=== PATIENT | male | born 1955 | race Caucasian/White ===

== ENCOUNTER 2017-05-30 19:58 | Inpatient (IN) | payer OTHER ==
[~2017-05-30] VITALS: Ht 185.4 cm; Wt 102.7 kg
--- NOTE | ~2017-05-30 | HEMODYNAMI ---
PATIENT:BRYCE JEAN MEDICAL RECORD: [id number] : 51 LOCATION:[facility]18 ADMISSION DATE: 05/30/17 Generatedon:05/31/201714:55 Patient name: BRYCE JEAN Patient #: [id number] SSN: [id number] B: 1955 Date of study: 05/31/2017 Page: Of Hemodynamic Procedure Report Patient Data Patient Demographics Procedure consent was obtained First Name: BRYCE Gender: Male Last Name: MIRANDA : 1955 Middle Initial: VITA Age: 62 year(s) Patient #: [id number] Race: Unknown Additional ID: [id number] Contact details Address: [address] State: [place] City: [place] Zip code: [address] Past Medical History Allergies Allergen Reaction Date Comments Reported Sulfa drugs 05/31/2017 Admission Admission Data Admission Date: 05/30/2017 Admission Time: 21:23 Room #: [facility] Procedure Procedure Types Cath Procedure Diagnostic Procedure [facility] w/Coronaries Miscellaneous Procedures Moderate Sedation up to 15 minutes Procedure Description Procedure Date Procedure Date: 05/31/2017 Procedure Start Time: 14:41 Procedure End Time: 14:54 Procedure Staff Name Function Micheal Mann MD Performing Physician Luiz Albright RT Scrub Beverly Dumont RT Monitor Dulce Solorio RN Nurse Procedure Data Cath Procedure Fluoroscopy Diagnostic fluoroscopy Total fluoroscopy Time: 1.5 time: 1.5 min min Diagnostic fluoroscopy Total fluoroscopy dose: 416 dose: 416 mGy mGy Contrast Material Contrast Material Type Amount (ml) Isovue 300 54 Entry Location Entry Primary Successful Side Size Upsize Upsize Entry Closure Succes sful Closure Location (Fr) 1 (Fr) 2 (Fr) Remarks Device Remarks Femoral Right 5 Fr Exoseal artery Estimated blood loss: 5 ml Diagnostic catheters Device Type Used For End Catheter Placement Cordis 5Fr Pigtail LV Angiography Catheter (MP) Cordis 5Fr JL 4.0 Left Coronary Catheter (MP) Angiography Diagnostic Infinity 5Fr Left Coronary JL 5 catheter Angiography Cordis 5Fr 3DRC Catheter Right Coronary (MP) Angiography Procedure Complications No complications Procedure Medications Medication Administration Route Dosage Oxygen NC 2 l/min Heparin Flush Bag added to field 2 bags (1000units/500ml NS) Lidocaine 2% added to field 20 Radial Cocktail added to field 1 syringe (Verapomil 2mg/Nitro 400mcg/Heparin 1500units) Versed I.V. 1 mg Fentanyl I.V. 50 mcg Versed I.V. 1 mg Fentanyl I.V. 50 mcg Versed I.V. 1 mg Fentanyl I.V. 50 mcg Versed I.V. 1 mg Fentanyl I.V. 50 mcg Hemodynamics Rest Heart Rate: 57 (bpm) Snapshots Pre Cath Intra NCS Post Cath Vital Signs Time Heart Resp SPO2 NIBP (mmHg) Rhythm Pain Sedation Rate (ipm) (%) Status Level (bpm) 14:22:50 59 16 99 151/93(129) SB 0 (11) 10(A) , No pain 14:27:10 57 16 99 145/94(124) SB 0 (11) 10(A) , No pain 14:31:30 57 15 96 158/85(124) SB 0 (11) 10(A) , No pain 14:35:44 52 13 96 140/89(120) SB 0 (11) 10(A) , No pain 14:40:02 57 24 92 144/76(126) SB 0 (11) 9(A) , No pain 14:44:18 50 16 97 135/81(118) SB 0 (11) 9(A) , No pain 14:48:34 52 22 96 154/87(123) SB 0 (11) 9(A) , No pain 14:52:38 59 27 96 138/92(125) SB 0 (11) 9(A) , No pain Medications Time Medication Route Dose Verified Delivered Reason Notes Eff ectiveness by by 14:22:15 Oxygen NC 2 l/min Micheal Solorio RN physician 14:22:23 Heparin Flush added 2 bags Micheal Burton used for Bag to Mackenzie Mann MD procedure (1000units/500ml field NS) 14:22:29 Lidocaine 2% added 20ml Micheal Micheal used for to vial Mackenzie Mann MD procedure field 14:22:36 Radial Cocktail added 1 Micheal Burton used for (Verapomil to syringe Mackenzie Mann MD procedure 2mg/Nitro field 400mcg/Heparin 1500units) 14:28:45 Versed I.V. 1 mg Micheal Dulce for Mackenzie Solorio RN sedation 14:28:50 Fentanyl I.V. 50 mcg Micheal Dulce for Mackenzie Solorio RN sedation 14:31:03 Versed I.V. 1 mg Micheal Dulce for Mackenzie Solorio RN sedation 14:31:10 Fentanyl I.V. 50 mcg Micheal Dulce for Mackenzie Solorio RN sedation 14:35:48 Versed I.V. 1 mg Micheal Dulce for Mackenzie Solorio RN sedation 14:35:55 Fentanyl I.V. 50 mcg Micheal Dulce for Mackenzie Soloiro RN sedation 14:38:00 Versed I.V. 1 mg Micheal Dulce for Mackenzie Solorio RN sedation 14:38:17 Fentanyl I.V. 50 mcg Micheal Dulce for Mackenzie Solorio RN sedation Procedure Log Time Note 14:00:59 Beverly Counts RT(R) sent for patient. Start room use. 14:01:00 Time tracking: Regular hours 14:01:03 Plan of Care:Hemodynamics will remain stable., Cardiac rhythm will remain stable., Comfort level will be maintained., Respiratory function will remain adequate., Patient/ family verbilizes understanding of procedure., Procedure tolerated without complication., Recovers from procedure without complications.. 14:16:43 Patient received from Med/Surg to CCL 2 Alert and oriented. Tansferred to table in Supine position. 14:16:44 Warm blankets applied, and javi hugger turned on for patient comfort. 14:16:44 Correct patient and procedure confirmed by team. 14:16:45 Signed procedure consent form obtained from patient. 14:16:46 ECG and BP/O2 sat monitors applied to patient. 14:16:47 Full Disclosure recording started 14:21:40 Vital chart was started 14:22:15 Oxygen 2 l/min NC was administered by Dulce Solorio RN; Per physician; 14:22:23 Heparin Flush Bag (1000units/500ml NS) 2 bags added to field was administered by Micheal Mann MD; used for procedure; 14:22:29 Lidocaine 2% 20ml vial added to field was administered by Micheal Mann MD; used for procedure; 14:22:36 Radial Cocktail (Verapomil 2mg/Nitro 400mcg/Heparin 1500units) 1 syringe added to field was administered by Micheal Mann MD; used for procedure; 14:23:21 Rhythm: sinus bradycardia 14:23:28 H&P Date Dictated: 05/31/2017 Within 30 days and on chart.. 14:23:45 IV Extension Set opened to sterile field. 14:24:28 Pre-procedure instructions explained to patient. 14:24:28 Pre-op teaching completed and patient verbalized understanding. 14:24:29 Family in waiting room. 14:24:32 Patient NPO since Midnight. 14:25:15 Patient allergic to Sulfa drugs 14:25:18 Is patient on blood thinner?No 14:25:21 Patient diabetic? No. 14:25:23 Previous problem with sedation/anesthesia? No ? 14:25:24 Snore? Yes 14:25:25 Sleep apnea? No 14:25:27 Deviated septum? No 14:25:27 Opens mouth fully? Yes 14:25:28 Sticks out tongue? Yes 14:25:30 Airway obstruction? No ? 14:25:31 Dentures? No ? 14:25:33 Pre procedure: right dorsailis pedis pulse 2+ Normal; easily identifiable; not easily obliterated 14:25:35 Modified Augie's test Ulnar < 7 seconds 14:25:37 Patient pain scale 0/10 ?. 14:25:45 IV patent on arrival in left hand with 0.9% NaCl at KVO. 14:25:51 Lab results completed and on chart. 14:25:54 Right Radial & Right Groin area was prepped with chlora-prep and draped in sterile fashion 14:25:55 Alarms reviewed by R. N. 14:25:55 Sharps counted by scrub and verified by R.N. 14:27:46 Final Timeout: patient, procedure, and site verified with staff and physician. All members of the team are in agreement. 14:27:48 Right Radial site verified by team. 14:27:52 Physical assessment completed. ASA score P 2 - A patient with mild systemic disease as per Micheal Mann MD. 14:27:55 Sedation plan: IV Moderate Sedation Versed, Fentanyl 14:28:44 Use device set Radial Dx 14:28:45 Versed 1 mg I.V. was administered by Dulce Solorio RN; for sedation; 14:28:45 Acist Syringe opened to sterile field. 14:28:45 Medline Cath Pack opened to sterile field. 14:28:46 Bag Decanter opened to sterile field. 14:28:47 St Hunter 260cm J .035 wire opened to sterile field. 14:28:47 Acist Hand Control opened to sterile field. 14:28:48 Acist Manifold opened to sterile field. 14:28:48 Tegaderm 4 x 4 opened to sterile field. 14:28:49 MBrace Wrist Support opened to sterile field. 14:28:50 Fentanyl 50 mcg I.V. was administered by Dulce Solorio RN; for sedation; 14:30:38 Baseline sample Acquired. 14:31:03 Versed 1 mg I.V. was administered by Dulce Solorio RN; for sedation; 14:31:10 Fentanyl 50 mcg I.V. was administered by Dulce Solorio RN; for sedation; 14:35:48 Versed 1 mg I.V. was administered by Dulce Solorio RN; for sedation; 14:35:55 Fentanyl 50 mcg I.V. was administered by Dulce Solorio RN; for sedation; 14:38:00 Versed 1 mg I.V. was administered by Dulce Solorio RN; for sedation; 14:38:17 Fentanyl 50 mcg I.V. was administered by Dulce Solorio RN; for sedation; 14:39:07 Zero performed for pressure channel P1 14:40:44 Procedure started. 14:41:34 Local anesthetic to right femoral artery with Lidocaine 2% by Micheal Mann MD.INITIAL ACCESS ONLY 14:41:53 Use device set Multipack Set 14:41:54 Diagnostic Infinity 5Fr Multipack catheter opened to sterile field. 14:41:56 Terumo 5Fr [place] Sheath opened to sterile field. 14:42:30 A 5 Fr sheath was inserted into the Right Femoral artery 14:43:26 A Cordis 5Fr Pigtail Catheter (MP) was advanced over the wire and used for LV Angiography. 14:44:13 LV gram done using BURROWS 14:44:23 EF : 50 % 14:44:29 Injector settings: Ml/sec: 10, Volume: 20, 14:44:42 Catheter removed. 14:44:46 A Cordis 5Fr JL 4.0 Catheter (MP) was advanced over the wire and used for Left Coronary Angiography.removed, unable to cannulate. 14:46:13 A Diagnostic Infinity 5Fr JL 5 catheter was advanced over the wire and used for Left Coronary Angiography. 14:47:07 Catheter removed. 14:47:26 A Cordis 5Fr 3DRC Catheter (MP) was advanced over the wire and used for Right Coronary Angiography. 14:48:08 Catheter removed. 14:48:14 Cordis 5Fr Exoseal opened to sterile field. 14:48:29 Sheath removed intact; hemostasis achieved with Exoseal to the Right Femoral artery. 14:48:43 Procedure ended.(Physican Out) 14:49:12 Fluoroscopy time 01.50 minutes. 14:49:16 Fluoroscopy dose: 416 mGy 14:49:16 Flurop Dose total: 416 14:49:48 Contrast amount:Isovue 300 54ml. 14:49:49 Sharps counted by scrub and verified by R.N. 14:50:39 Insertion/operative site no bleeding no hematoma. 14:50:45 Post-op/insertion site Right Femoral artery dressed using a 4 x 4 and Tegaderm. 14:50:48 Post right femoral artery:stable, clean and dry 14:50:50 Post Procedure Pulses reassessed and unchanged 14:50:53 Post-procedure physical assessment completed. ASA score P 2 - A patient with mild systemic disease as per Micheal Mann MD. 14:50:56 Post procedure rhythm: unchanged. 14:51:06 Estimated blood loss: 5 ml 14:51:07 Post procedure instruction explained to patient.Patient verbalizes understanding. 14:51:08 Patient needs reinforcement of post procedure teaching. 14:51:21 Procedure type changed to Cath procedure, Diagnostic procedure, LHC, LHC w/Coronaries, Miscellaneous Procedures, Moderate Sedation up to 15 minutes 14:51:27 Procedure Complication : No complications 14:51:29 See physician's report for complete and final results. 14:53:24 Procedure and supply charges have been captured, reviewed, submitted and are correct. 14:54:35 Vital chart was stopped 14:54:37 Report given to PCU. 14:54:40 Patient transfered to PCU with Bed. 14:54:47 Procedure ended. 14:54:47 Full Disclosure recording stopped 14:54:53 End room use (Document Last) Device Usage Item Name Manufacture Quantity Catalog Hospital Part Current Minimal Lot# / Number Charge Number Stock Stock Serial# Code IV Hospira 1 25072-46 [id number] 77865 805142 5 Extension Set Acist Acist 1 88761 235667 713952 854232 20 Syringe Medical Systems Inc Medline Cardinal 1 [id number] 441613 18433 934364 5 Cath Pack Health Bag Microtek 1 2001S 932089 28791 784069 [address] Hunter 1 391884 813670 344144 495864 30 260cm J .035 wire Acist Hand Acist 1 98285 857694 375612 353482 5 Control Medical Systems Inc Acist Acist 1 40009 162872 648430 312694 5 Manifold Medical Systems Inc Tegaderm 4 3M 1 1626W 085509 390918 421893 5 x 4 MBrace Advanced 1 140-0250-00 231529 63279 469006 5 Wrist Vascular Support Dynamics Diagnostic Cardinal 1 HC1607 267694 11954 051755 30 Infinity Health 5Fr Multipack catheter Terumo 5Fr Terumo 1 [id number] 418250 178478 362584 40 [place] Sheath Cordis 5Fr Cardinal 1 660618 5 Pigtail Health Catheter (MP) Cordis 5Fr Cardinal 1 463557 5 JL 4.0 Health Catheter (MP) Diagnostic Cardinal 1 [id number] 677637 154261 514326 5 Infinity Health 5Fr JL 5 catheter Cordis 5Fr Cardinal 1 546233 5 3DRC Health Catheter (MP) Cordis 5Fr Cardinal 1 EX500 497218 294839 389729 10 GlamBox Signature Audit [place] Stage Time Signature Unsigned Intra-Procedure 05/31/2017 Beverly 2:55:05 PM Counts RT(R) Signatures Monitor : Beverly Signature : Counts RT Date : Time : [place] [id number] [place] [address]
--- NOTE | ~2017-05-30 | PRO ---
PATIENT:BRYCE JEAN MEDICAL RECORD: [id number] : 51 LOCATION:D.M2 D.2129 ADMISSION DATE: 05/30/17 PROCEDURE PERFORMED BY: PIO GARCIA MD PROCEDURE DATE: 05/31/17 PROCEDURES: 1. Left heart catheterization. 2. Selective coronary angiography. 3. Left ventriculogram. INDICATION: 1. Dyspnea on exertion. 2. Bradycardia. 3. Dysrhythmia. PROCEDURE IN DETAIL: After informed consent was obtained and after detailed explanation of risks, benefits, as well as alternative therapies, the patient elected to proceed with angiogram. The right femoral area was prepped and draped in a normal sterile fashion. The right femoral artery was cannulated via modified Seldinger technique with placement of 5-Kazakh sheath. All catheters exchanged through this sheath. FINDINGS: The left ventriculogram was performed in standard 30 degree BURROWS view, reveals good cardiac wall motion throughout all segments. Overall ejection fraction 50%. SELECTIVE CORONARY ANGIOGRAPHY: 1. Left main, left anterior descending, left circumflex, and right coronary artery are all smooth-walled vessels with no angiographic evidence of coronary artery disease. OVERALL IMPRESSION: 1. No angiographic evidence of coronary artery disease. 2. Normal left heart pressures. 3. Normal left ventricular systolic function. 4. Chest pain is noncardiac in etiology. No further cardiac workup needs to be ascertained. PIO GARCIA MD CC: [id number] DICTATION DATE: 06/01/172300 AMMUNITION ASSEMBLY II LABORER: JMARYCRUZ 06/01/172300 ADM IN [facility] [address] [id number]
--- NOTE | ~2017-05-30 | EC ---
PATIENT:BRYCE JEAN DATE OF SERVICE: 05/31/17 SEX: M MEDICAL RECORD: [id number] DATE OF : [birth year] LOCATION:D.M2 D.212 AGE OF PATIENT: 62 ADMISSION DATE: 05/30/17 REFERRING PHYSICIAN: INTERPRETING PHYSICIAN: PIO GARCIA MD ECHOCARDIOGRAM REPORT ECHO CHARGES 4 ECHO COMPLETE CLINICAL DIAGNOSIS: ASSESS FOR CHF HX OF HTN ECHOCARDIOGRAPHIC MEASUREMENTS (adult normal given) AC root (d.<3.7cm) 4.3 cm LV Septum d (<1.2 cm> 1.5 cm Valve Excursion 2.3 cm LV Septum (systole) 2.0 cm Left Atria (s.<4.0cm> 4.5 cm LVPW d(<1.2cm) 2.0 cm RV (d.<2.3cm) 5.8 cm LVPW (sytole) 2.1 cm LV diastole(<5.6CM) 5.2 cm MV E-F(>70mm/sec) cm LV systole 3.0 cm LVOT Diameter 2.2 cm MV exc.(>10mm) 2.3 cm Est.ejection fraction (50-75%) % Pericardial Effusion N DOPPLER: LVIT cm/sec A 40.0 cm/sec E 99.0 cm/sec LA cm/sec RVSP 44 mmHg LVOT 94 cm/sec AOP1/2T m/s Asc. Ao 134 cm/sec RVOT 56 cm/sec RA cm/sec PA 117 cm/sec AV Gradient Peak 7.23 mmHg AV Mean 3.91 mmHg AV Area 2.9 cm MV Gradient Peak 6.19 mmHg MV Mean 1.76 mmHg MV Area cm COMMENTS: Business Case Analyst: 2 DEVI WHEAT Caddie Supervisor: 3 Dr. Bojorquez TAPE# PACS TWO-DIMENSIONAL ECHOCARDIOGRAM WITH DOPPLER 1. Left ventricular chamber size is within normal limits. Left ventricular systolic function is normal. Overall ejection fraction is estimated at 60 percent. 2. Left atrium is enlarged at 4.5 centimeters. Right atrium and right ventricular chamber sizes are as well moderately dilated. 3. Valvular structures have normal structure and motion. 4. Doppler interrogation reveals moderate mitral regurgitation and moderate tricuspid regurgitation; no other valvular insufficiency or stenosis. Pulmonary artery systolic pressure is mildly elevated estimated at 44 millimeters of mercury. ECHOCARDIOGRAM REPORT [id number] BRYCE JEAN 5. No evidence of pericardial effusion or left ventricular thrombus. PIO GARCIA MD CC: [id number] DICTATION DATE: 05/31/17 1600 SUSTAINMENT LOGISTICS ANALYST: MELONY 06/01/17 1543 ADM IN [facility] [address] [place] [address]
[~2017-05-30 19:58] MED LIST: ARICEPT10 MG PO; AVODART0.5 MG PO; BACTROBAN CREAM15 GM TOPICAL; CALCIUM CITRATE1 TAB PO; DILAUDID8 MG PO; EFFEXOR XR150 MG PO; FELODIPINE ER10 MG PO; FLOMAX0.4 MG PO; FLUTICASONE PRO16 GM NASAL; KEPPRA1000 MG PO; LYSINE1000 MG PO; MULTIPLE VITAMI1 TA1 PO; NORCO 5/325 TAB1 TA1 PO; OXYCODONE HCL10 MG PO; PERCOCET 10/3251 TA1 PO; POTASSIUM CITRA5 MEQ PO; PRILOSEC20 MG PO; PRINIVIL10 MG PO; TIROSINT50 MCG PO; TOPROL XL25 MG PO; TYLENOL W/CODEI1 TAB PO; VITAMIN D50000 UNIT PO; ZOCOR40 MG PO; ZOFRAN8 MG PO
[2017-05-30 21:13] LABS: ALKALINE PHOSPHATASE 75 U/L (46-116); ALT (SGPT) 16 U/L (10-68); BILIRUBIN - TOTAL 0.33 mg/dL (0.2-1.3); CALC OSMOLALITY 290 mosm/kg (275-300); CALCIUM 8.1 mg/dL (8.5-10.1); CARBON DIOXIDE 22.8 mmol/L (21.0-32.0); CHLORIDE - SERUM 113 mmol/L (98-107); CREATININE - SERUM 1.3 mg/dL (0.6-1.3); PROTEIN - SERUM 6.6 g/dL (6.4-8.2); SODIUM 145 mmol/L (136-145); UREA NITROGEN 15 mg/dL (7-18); eGFR NON AFRICAN AMERICAN 59 mL/min (90-120)
[2017-05-30 21:14] LABS: GLUCOSE 110 mg/dL (74-106)
[2017-05-30 21:19] LABS: BASOPHILS 0.7 % (0-2); EOSINOPHILS 4.5 % (0-7); HEMATOCRIT 25.7 % (42.0-54.0); IMMATURE GRANULOCYTES 0.3 % (0-5); LYMPHOCYTES 22.4 % (15-50); MCH 20.7 pg (26.0-34.0); MCHC 28.8 g/dL (31.0-37.0); MEAN PLATELET VOLUME 9.8 fL (7.4-10.4); MONOCYTES 13.2 % (2-11); NEUTROPHILS 58.9 % (40-80); PLATELET COUNT 181 10x3/uL (130-400); RBC 3.57 10x6/uL (4.20-6.10); RDW 16.7 % (11.5-14.5)
[2017-05-30 21:21] LABS: CREATINE KINASE 165 UL (21-232); HEMOGLOBIN 7.4 g/dL (13.5-17.5); MAGNESIUM - SERUM 2.1 mg/dL (1.8-2.4); PRO BNP 1260 pg/mL (0-125)
[2017-05-30 21:23] LABS: TROPONIN-I < 0.017 ng/mL (0.000-0.060)
[2017-05-30 21:45] LABS: APPEARANCE CLEAR (CLEAR); COLOR YELLOW (YELLOW)
[2017-05-30 21:49] LABS: BILIRUBIN NEGATIVE (NEGATIVE); GLUCOSE NEGATIVE (NEGATIVE); KETONE NEGATIVE (NEGATIVE); LEUKOCYTE ESTERASE NEGATIVE (NEGATIVE); NITRITE NEGATIVE (NEGATIVE); PROTEIN NEGATIVE (NEGATIVE); UROBILINOGEN NORMAL (NORMAL)
--- NOTE | 2017-05-30 22:39 | NUR ---
REC'D FROM ER DEPT PER WC TO ROOM 2218 A 62 Y/O W/M PER SERVICES DR. SALCEDO WITH DX. PNEUMONIA AND ANEMIA. ALLERGY=SULFA. SALINE LOCK PATENT RT ARM WITH LEVAQUAN INFUSING TO GRAVITY. ASESSMENT PER ADMIT PACKET. ALERT/ORIENTED X3 UP AD MOHIT TO BR VOIDS WELL. PLACED ON TELM. SHOWING CAF WITH HR 59.
--- NOTE | 2017-05-30 23:10 | NUR ---
CONSENTS SIGNED AND WITNESSED FOR BLOOD TRANSFUSION. PLACED CONSENTS ON THE CHART.
[2017-05-30 23:43] VITALS: BP 148/86; BMI 31.0
--- NOTE | 2017-05-31 00:40 | NUR ---
FIRST UNIT OF PRBC'S STARTED PER HOSPITAL PROTOCAL. ZIGZAG MACHINE OPERATOR PHONED AND STATED PT DIPPED DOWN TO 37-40 BEATS THEN BACK UP TO 55-59. CAF.VS RETAKEN SHOWS HR 62. B/P=130/76. WILL CONTINUE TO MONITOR.
--- NOTE | 2017-05-31 03:38 | NUR ---
FIRST UNIT PRBC'S COMPLETED WITHOUT REACTION. LASIX 20 MG IVP X1 DOSE GIVEN ORDERED BETWEEN UNITS.
--- NOTE | 2017-05-31 04:20 | NUR ---
SECOND UNIT PRBC'S HUNG PER HOSPITAL PROTOCAL. MONITORING VS WITH TRANFUSION.
--- NOTE | 2017-05-31 05:12 | NUR ---
EYES CLOSED RESPIRATIONS WITH EASE AND UNLABORED.
--- NOTE | 2017-05-31 07:25 | NUR ---
ASSESSMENT PER FLOW SHEET.PT WITHOUT DISTRESS.DENIES PAIN AT PRESENT.OCCASIONAL PRODUCTIVE COUGH WITH CLEAR SPUTUM. BLOOD IS INFUSING AND ALMOST COMPLETE.SCABBED AREAS NOTED TO BLE.CALL LIGHT IN REACH.
--- NOTE | 2017-05-31 07:40 | NUR ---
CALL FROM THERMOSTATIC CONTROLS SUPERVISOR HEART RATE DROPPED TO 39 ,BUT THEN INCREASED BACK TO 55. PT WITHOUT DISTRESS. STATES NO HX OF LOW HR.MONITOR
[2017-05-31 08:09] VITALS: BP 137/82
[2017-05-31 10:16] LABS: ALBUMIN 3.1 g/dL (3.4-5.0); ANION GAP 15.1 mmol/L (8-16); BILIRUBIN - TOTAL 0.49 mg/dL (0.2-1.3); CALCIUM 8.1 mg/dL (8.5-10.1); CARBON DIOXIDE 23.5 mmol/L (21.0-32.0); CREATININE - SERUM 1.5 mg/dL (0.6-1.3); POTASSIUM - SERUM 3.6 mmol/L (3.5-5.1)
[2017-05-31 10:30] LABS: % SATURATION 6 % (15-55); IRON 28 ug/dl (35-150); TOTAL IRON BIND CAPACITY 411 ug/dl (260-445); UNSAT IRON BIND CAPACITY 383 ug/dl (150-375)
[2017-05-31 10:40] LABS: BASOPHILS 0.4 % (0-2); EOSINOPHILS 3.7 % (0-7); HEMATOCRIT 30.9 % (42.0-54.0); HEMOGLOBIN 9.2 g/dL (13.5-17.5); IMMATURE GRANULOCYTES 0.2 % (0-5); LYMPHOCYTES 17.8 % (15-50); MCH 22.1 pg (26.0-34.0); MCHC 29.8 g/dL (31.0-37.0); MCV 74.1 fL (80.0-100.0); MEAN PLATELET VOLUME 10.5 fL (7.4-10.4); MONOCYTES 13.1 % (2-11); NEUTROPHILS 64.8 % (40-80); PLATELET COUNT 199 10x3/uL (130-400); RBC 4.17 10x6/uL (4.20-6.10); RDW 17.3 % (11.5-14.5); WBC 5.6 10x3/uL (4.8-10.8)
[2017-05-31 11:59] VITALS: BP 143/80
[2017-05-31 12:37] LABS: CKMB 1.5 U/L (0.0-3.6); CREATINE KINASE 169 UL (21-232); TROPONIN-I 0.027 ng/mL (0.000-0.060)
[2017-05-31 13:03] VITALS: Ht 185.4 cm; Wt 102.7 kg
--- NOTE | 2017-05-31 14:17 | NUR ---
TO FIBERGLASS CONTAINER WINDING OPERATOR VIA BED
--- NOTE | 2017-05-31 15:30 | NUR ---
RECEIVED PT TO ROOM 2128, POST CATH. VITAL SIGNS STABLE, NO BLEEDING OR HEMATOMA NOTED TO RT GROIN. INSTRUCTED PT TO LAY FLAT FOR 2HRS. PT DENIES ANY NEEDS AT THIS TIME. NO FAMILY PRESENT, CALL LIGHT IN REACH, NAD NOTED, WILL CONTINUE TO MONITOR.
--- NOTE | 2017-05-31 15:40 | NUR ---
REPORT TO KAMINI ON U.
[2017-05-31 16:30] VITALS: BP 127/78
--- NOTE | 2017-05-31 16:30 | NUR ---
LATE ENTRY- REFUSED SCD'S
[2017-05-31 20:00] VITALS: BP 119/71
--- NOTE | 2017-05-31 21:35 | NUR ---
AWAKE ORIENTED X 4. WATCHING TV. DENIES PAIN. IV IN L FA INTACT, ADMIN SCHED LEVAQUIN. RT GROIN DRSG C/D/I. TELEMETRY SHOWS 60 SR, FIRST DEGREE BLOCK. AMBULATED TO BATHROOM TO VOID. ORIENTED TO CALL LIGHT FOR ANY NEEDS.
[2017-06-01 01:08] LABS: CKMB 0.8 U/L (0.0-3.6); CREATINE KINASE 139 UL (21-232); TROPONIN-I 0.032 ng/mL (0.000-0.060)
[2017-06-01 03:31] LABS: BASOPHILS 0.3 % (0-2); EOSINOPHILS 4.4 % (0-7); HEMATOCRIT 29.6 % (42.0-54.0); IMMATURE GRANULOCYTES 0.2 % (0-5); LYMPHOCYTES 23.5 % (15-50); MCH 22.6 pg (26.0-34.0); MCHC 30.4 g/dL (31.0-37.0); MCV 74.4 fL (80.0-100.0); MEAN PLATELET VOLUME 9.9 fL (7.4-10.4); MONOCYTES 17.2 % (2-11); NEUTROPHILS 54.4 % (40-80); PLATELET COUNT 170 10x3/uL (130-400); RBC 3.98 10x6/uL (4.20-6.10); RDW 17.3 % (11.5-14.5); WBC 5.9 10x3/uL (4.8-10.8)
[2017-06-01 03:51] LABS: ALBUMIN 2.9 g/dL (3.4-5.0); ANION GAP 12.5 mmol/L (8-16); BILIRUBIN - TOTAL 0.4 mg/dL (0.2-1.3); CALCIUM 8.2 mg/dL (8.5-10.1); CARBON DIOXIDE 27.1 mmol/L (21.0-32.0); CREATININE - SERUM 1.4 mg/dL (0.6-1.3); POTASSIUM - SERUM 3.6 mmol/L (3.5-5.1); PROTEIN - SERUM 6.4 g/dL (6.4-8.2)
[2017-06-01 04:00] VITALS: BP 125/77
--- NOTE | 2017-06-01 05:45 | NUR ---
ADMIN SCHED MED. STILL DROWSY. DENIES ANY NEEDS.
--- NOTE | 2017-06-01 07:44 | NUR ---
AM ROUNDING- RECEIVED REPORT FROM ROLL FORMING MACHINE OPERATOR NURSE GWENDOLYN. PT IS CURRENLTY LAYING IN BED ON BACK WITH EYES OPEN RESTING. ON 02 AT 2L VIA NC. ON MONITOR SHOWING CONTROLLED A-FIB, HR 54. IV SEEN TO LEFT FOREARM WITH NS RUNNING AT KVO (20CC). NO NEED AT CURRENT TIME. WILL CONTINUE TO MONITOR AND CONTINUE WITH PLAN OF CARE.
[2017-06-01 10:02] VITALS: BP 129/73
[2017-06-01 14:42] VITALS: BP 142/85
--- NOTE | 2017-06-01 15:18 | NUR ---
CALLED INTO PTS ROOM. PT STATES (WHILE POINTING TO IV SITE) THAT "IT POPPED OFF WHILE GOING TO THE BATHROOM". PTS IV CATHETER IS ON FLOOR HOOKED TO IV TUBING WITH CATH TIP INTACT. NO BLEEDING SEEN FROM IV SITE. WILL ATTEMPT TO RESITE PT. WILL CONTINUE TO MONITOR.
--- NOTE | 2017-06-01 16:08 | NUR ---
22 G X 1 STICK TO LEFT FA PER THIS NURSE. TOLERATED WELL.
--- NOTE | 2017-06-01 17:14 | NUR ---
PT IS CURRENTLY SITTING UP IN BED WATCHING TV. PT DENIES ANY NEED AT CURRENT TIME. CALL LIGHT IS IN REACH. WILL CONTINUE TO MONITOR.
[2017-06-01 17:48] VITALS: BP 138/84
--- NOTE | 2017-06-01 18:31 | NUR ---
PT IS SITTING UP IN BED WITH EYES OPEN RESTING WATCHING TV. PT DENIES ANY NEED AT CURRENT TIME. CALL LIGHT IS IN REACH. WILL CONTINUE TO MONITOR.
[2017-06-01 19:00] VITALS: BP 122/74
--- NOTE | 2017-06-01 20:00 | NUR ---
PATIENT SHIFT ASSESSMENT COMPLETE. PATIENT DENIES ANY NEEDS AT THIS TIME. CALL LIGHT WITHIN REACH, AND BED IN LOW POSISTION.
--- NOTE | 2017-06-01 22:01 | NUR ---
PATIENT IS RESTLESS IN BED, LAYING AT THE FOOT OF THE BED TO GET COMFORTABLE DUE TO HIS RIB PAIN EXCRUCIATING WHEN HE COUGHS. EXPLAINED TO PATIENT THAT HE NEEDED TO BE ABLE TO COUGH, AND DEEP BREATH TO HELP CLEAR HIS LUNGS, AND PREVENT BREATHING FROM DECREASING. PATIENT VERBALIZED UNDERSTANDING AND AGREED THAT HE NEEDED SOMETHING FOR PAIN. MILLICENT STAPLES FOR PAIN MED, NEW ORDER RECEIVED AND NOTED.
--- NOTE | 2017-06-02 00:13 | NUR ---
PATIENT STATES PAIN MED AND WARM COMPRESS TO RIB AREA HELPED. IV INFUSING WITHOUT REDNESS OR EDEMA NOTED. CALL LIGHT WITHIN REACH, AND BED IN LOW POSITION.
--- NOTE | 2017-06-02 02:05 | NUR ---
PATIENT AWAKE STATES HE IS STILL HAVING PAIN IN LEFT RIB AREA. PATIENT REQUEST ANOTHER PAIN MEDICATION, PATIENT IS INFORMED THAT HE CAN ONLY HAVE IT EVER 6HRS. PATIENT VERBALIZES UNDERSTANDING. OFFERED WARM COMPRESS TO PLACE ON RIB AREA, AND PATIENT AGREED. CALL LIGHT WITHIN REACH, AND BED IN LOW POSITION.
--- NOTE | 2017-06-02 04:12 | NUR ---
NORCO GIVEN FOR PAIN IN LEFT RIB AREA. PATIENT STATES IT HURTS WORSE WHEN HE COUGHS BUT IS APPROXIMATELY 6 ON PAIN SCALE CONT. DIET LEMON TELIDA SODA GIVEN. PATIENT DENIES ANY OTHER NEEDS AT THIS TIME. CALL LIGHT WITHIN REACH, AND BED IN LOW POSITION.
[2017-06-02 06:11] LABS: BASOPHILS 0.3 % (0-2); EOSINOPHILS 3.7 % (0-7); HEMATOCRIT 30.8 % (42.0-54.0); HEMOGLOBIN 9.6 g/dL (13.5-17.5); IMMATURE GRANULOCYTES 0.1 % (0-5); LYMPHOCYTES 19.3 % (15-50); MCHC 31.2 g/dL (31.0-37.0); MCV 73.7 fL (80.0-100.0); MEAN PLATELET VOLUME 10.2 fL (7.4-10.4); MONOCYTES 15.1 % (2-11); NEUTROPHILS 61.5 % (40-80); PLATELET COUNT 193 10x3/uL (130-400); RBC 4.18 10x6/uL (4.20-6.10); RDW 17.9 % (11.5-14.5); WBC 6.9 10x3/uL (4.8-10.8)
[2017-06-02 06:24] VITALS: BP 137/89
--- NOTE | 2017-06-02 06:27 | NUR ---
PATIENT SLEEPING AROUSES EASILY WITH VERBAL STIMULI. PATIENT DENIES ANY NEEDS AT THIS TIME. CALL LIGHT WITHIN REACH, AND BED IN LOW POSITION.
[2017-06-02 06:32] LABS: ALBUMIN 2.8 g/dL (3.4-5.0); ANION GAP 15.3 mmol/L (8-16); BILIRUBIN - TOTAL 0.44 mg/dL (0.2-1.3); CALCIUM 8.1 mg/dL (8.5-10.1); CARBON DIOXIDE 24.3 mmol/L (21.0-32.0); CREATININE - SERUM 1.3 mg/dL (0.6-1.3); POTASSIUM - SERUM 3.6 mmol/L (3.5-5.1); PROTEIN - SERUM 6.5 g/dL (6.4-8.2)
--- NOTE | 2017-06-02 07:44 | NUR ---
DEVANG HOGAN- RECEIVED REPORT FROM DIRECTOR VIDEO NURSE JHONATAN. PT IS CURRENTLY SITTING UP ON SIDE OF BED. PT IS C/O 5/10 PAIN FROM "RIB CAGE AREA". ON O2 AT 2L VIA NC. ON MONITOR SHOWING CONTROLLED A-FIB, HR 56. IV SEEN TO LEFT FOREARM THAT IS RUNNING AT KVO (20CC). WILL SEE WHAT PT HAS FOR PAIN AND TX ORDERED. WILL CONTINUE TO MONITOR AND CONTINUE WITH PLAN OF CARE.
[2017-06-02 08:00] VITALS: BP 139/88
[2017-06-02 16:00] VITALS: BP 126/91
--- NOTE | 2017-06-02 18:40 | NUR ---
PT IS CURRENTLY LAYING IN BED ON BACK WITH EYES OPEN RESTING. GAVE PT TWO CANS OF DIET LEMON-NANWALEK SODA REQUESTED. PT DENIES ANY NEED AT CURRENT TIME. WILL CONTINUE TO MONITOR.
[2017-06-02 19:00] VITALS: BP 143/93
--- NOTE | 2017-06-02 19:50 | NUR ---
SIT UP IN BED AND WATCH TV.
[2017-06-03] VITALS: BP 126/87
--- NOTE | 2017-06-03 01:19 | NUR ---
C/O OF PAIN IN CHEST AREA, AT A LEVEL OF 7, PAIN MED GIVEN.
[2017-06-03 04:00] VITALS: BP 123/92
[2017-06-03 06:16] LABS: BASOPHILS 0.1 % (0-2); EOSINOPHILS 4.1 % (0-7); HEMATOCRIT 31.5 % (42.0-54.0); HEMOGLOBIN 9.5 g/dL (13.5-17.5); IMMATURE GRANULOCYTES 0.3 % (0-5); LYMPHOCYTES 17.2 % (15-50); MCH 22.1 pg (26.0-34.0); MCHC 30.2 g/dL (31.0-37.0); MCV 73.4 fL (80.0-100.0); MEAN PLATELET VOLUME 10.2 fL (7.4-10.4); NEUTROPHILS 61.3 % (40-80); PLATELET COUNT 191 10x3/uL (130-400); RBC 4.29 10x6/uL (4.20-6.10); RDW 18.3 % (11.5-14.5); WBC 7.1 10x3/uL (4.8-10.8)
[2017-06-03 06:46] LABS: ALBUMIN 2.9 g/dL (3.4-5.0); ANION GAP 13.9 mmol/L (8-16); BILIRUBIN - TOTAL 0.43 mg/dL (0.2-1.3); CALCIUM 8.1 mg/dL (8.5-10.1); CARBON DIOXIDE 24.9 mmol/L (21.0-32.0); CREATININE - SERUM 1.4 mg/dL (0.6-1.3); POTASSIUM - SERUM 3.8 mmol/L (3.5-5.1); PROTEIN - SERUM 6.4 g/dL (6.4-8.2)
--- NOTE | 2017-06-03 07:38 | NUR ---
AM ROUNDS - PT IN BED AWAKE C/O LEFT SIDE PAIN, STATES IT IS FROM COUGHING. IV TO LEFT FA, NS AT 20CC/HR. NON SKID SOCKS ON. BED AT LOEST POSITION. SIDE RAILS UP X2. MONITOR SHOWING SR, HR 58. PT IS A&O. NO FUTHER NEEDS AT THIS TIME. WILL CONTINUE TO MONITOR
[2017-06-03 08:00] VITALS: BP 121/82
--- NOTE | 2017-06-03 10:35 | NUR ---
PT PIV INFILTRATED IN LEFT ARM DC WITH CATH TIP INTACT. RESITED PT TO R FA 22G X2 STICKS. TOLERATED WELL. SIGNED AND DATED DSNG ADHERED TO SKIN SWAB CAP IN USE. NOTIFIED JOSH ROPER
[2017-06-03 12:00] VITALS: BP 138/87
[2017-06-03] MEDS ORDERED: CORDARONE200 MG PO (13:17)
[2017-06-03] MEDS ORDERED: LEVAQUIN500 MG PO (13:20)
--- NOTE | 2017-06-03 14:14 | NUR ---
Patient Name: BRYCE JEAN Status: ER Accout number: [id number] Admission Date: 05-30-2017 : 1955 Admission Diagnosis:SHORTNESS OF BREATH Attending: KHAI Current LOS: 4 Anticipated DC Date: 06-03-2017 Planned Disposition: Home Primary Insurance: [employer] PPO Discharge Planning Comments: CM MET WITH PATIENT TO DISCUSS DISCHARGE PLANNING/NEEDS. PATIENT STATED THAT HE LIVES WITH A FRIEND NAMED NATE AND SHE WILL BE HIS TRANSPORTATION HOME. STATED THAT HE HAS A WALKER SOMEWHERE,"OR AT LEAST I USE TO", BUT DOESN'T FEEL HE NEEDS IT OR ANY OTHER EQUIPMET. DENIES ANY NEEDS. HAVE MADE MYSELF AVAILABLE IF HE WERE TO THINK OF ANY NEEDS BEFORE HE LEAVES TODAY. Calender Worker Helper: Zainab Guzmán Is the patient Alert and Oriented? Yes * How many steps to enter\\exit or inside your home? 0 * PCP DR [place] * [facility] * Preadmission Environment Home with Family * ADLs Independent * Other Equipment PATIENT STATED HE USE TO HAVE A WALKER, BUT IS UNSURE IF HE STILL HAS IT OR NOT. * List name and contact numbers for known caregivers / representatives who currently or will assist patient after discharge: JOSE KUMAR, FRIEND, * Additional services required to return to the preadmission environment? No * Can the patient safely return to the preadmission environment? Yes * Has this patient been hospitalized within the prior 30 days at any hospital? No
--- NOTE | 2017-06-03 15:30 | NUR ---
WRITTEN AND VERBAL D/C INSTRUCTIONS GIVEN TO PT. IV TO RIGHT FA D/C, CATH TIP INTACT. PT TOLERATED WELL. HEART MONITOR REMOVED AND RETURNED TO ROOFER. PT IS GETTING DRESSED AND THEN I WILL D/C
== END 2017-06-03 15:00 | disposition home or self-care (01) | DRG 286 ==
LOC: D.ER 19:58 → D.MS 21:23 → D.M2 21:23
PROVIDERS: Emergency Medicine; Internal Medicine Interventional Cardiology; ADMIT Family Medicine
PROC: 4A023N7 Measurement of Cardiac Sampling and Pressure, Left Heart, Percutaneous Approach (ICD-10-PCS; principal; 2017-05-31 14:00)
PROC: B2151ZZ Fluoroscopy of Left Heart using Low Osmolar Contrast (ICD-10-PCS; principal; 2017-05-31 14:00)
DX: R07.9 Chest pain, unspecified (principal); J18.9 Pneumonia, unspecified organism; I44.2 Atrioventricular block, complete; R00.1 Bradycardia, unspecified; E53.8 Deficiency of other specified B group vitamins; D50.9 Iron deficiency anemia, unspecified; E83.51 Hypocalcemia; G89.29 Other chronic pain; I48.2 Chronic atrial fibrillation; E03.9 Hypothyroidism, unspecified; M54.5 Low back pain; I10 Essential (primary) hypertension; F32.9 Major depressive disorder, single episode, unspecified; Z86.73 Personal history of transient ischemic attack (TIA), and cerebral infarction without residual deficits

== ENCOUNTER 2017-06-06 22:25 | Emergency (ER) | payer OTHER ==
[2017-05-31 13:03] VITALS: BMI 31.0
[~2017-06-06 22:25] MED LIST changes: +CORDARONE200 MG PO; +LEVAQUIN500 MG PO
[2017-06-06 23:38] LABS: HEMATOCRIT 30.2 % (42.0-54.0); HEMOGLOBIN 9.3 g/dL (13.5-17.5); LYMPHOCYTES 20.1 % (15-50); MCH 22.7 pg (26.0-34.0); MCHC 30.8 g/dL (31.0-37.0); MCV 73.8 fL (80.0-100.0); MEAN PLATELET VOLUME 9.1 fL (7.4-10.4); NEUTROPHILS 66.9 % (40-80); PLATELET COUNT 213 10x3/uL (130-400); RBC 4.09 10x6/uL (4.20-6.10); RDW 19.2 % (11.5-14.5); WBC 8.6 10x3/uL (4.8-10.8)
[2017-06-06 23:54] LABS: ALBUMIN 3.1 g/dL (3.4-5.0); ANION GAP 14.1 mmol/L (8-16); BILIRUBIN - TOTAL 0.3 mg/dL (0.2-1.3); CALCIUM 8.2 mg/dL (8.5-10.1); CARBON DIOXIDE 23.1 mmol/L (21.0-32.0); CREATININE - SERUM 1.7 mg/dL (0.6-1.3); POTASSIUM - SERUM 4.2 mmol/L (3.5-5.1); PROTEIN - SERUM 6.8 g/dL (6.4-8.2)
[2017-06-07 01:40] LABS: APTT 29.9 SECONDS (22.8-39.4); INR 0.99 (0.85-1.17); PROTIME 12.9 SECONDS (11.6-15.0)
== END 2017-06-07 04:20 | disposition home or self-care (01) ==
LOC: D.ER 22:25
PROVIDERS: Emergency Medicine
DX: S36.62XA Contusion of rectum, initial encounter (principal); X58.XXXA Exposure to other specified factors, initial encounter; Y93.89 Activity, other specified; Y92.89 Other specified places as the place of occurrence of the external cause; I50.9 Heart failure, unspecified; I10 Essential (primary) hypertension

== ENCOUNTER 2017-06-07 13:16 | Emergency (ER) | payer OTHER ==
[2017-05-31 13:03] VITALS: BMI 31.0
[2017-06-07 14:41] LABS: BASOPHILS 0.8 % (0-2); EOSINOPHILS 4.6 % (0-7); HEMATOCRIT 32.9 % (42.0-54.0); HEMOGLOBIN 9.7 g/dL (13.5-17.5); IMMATURE GRANULOCYTES 0.2 % (0-5); LYMPHOCYTES 20.9 % (15-50); MCH 22.2 pg (26.0-34.0); MCHC 29.5 g/dL (31.0-37.0); MCV 75.5 fL (80.0-100.0); MEAN PLATELET VOLUME 9.2 fL (7.4-10.4); MONOCYTES 12.7 % (2-11); NEUTROPHILS 60.8 % (40-80); PLATELET COUNT 218 10x3/uL (130-400); RBC 4.36 10x6/uL (4.20-6.10); RDW 19.6 % (11.5-14.5); WBC 6.6 10x3/uL (4.8-10.8)
== END 2017-06-07 15:10 | disposition home or self-care (01) ==
LOC: D.ER 13:16
PROVIDERS: Nurse Practitioner Acute Care
DX: S39.011A Strain of muscle, fascia and tendon of abdomen, initial encounter (principal); X58.XXXA Exposure to other specified factors, initial encounter; Y93.89 Activity, other specified; Y92.89 Other specified places as the place of occurrence of the external cause; S36.62XA Contusion of rectum, initial encounter; I50.9 Heart failure, unspecified; I10 Essential (primary) hypertension; I95.9 Hypotension, unspecified; R05 Cough; R10.9 Unspecified abdominal pain

== ENCOUNTER → 2017-06-23 07:46 | Outpatient (CLI) | payer OTHER ==
[2017-05-31 13:03] VITALS: BMI 31.0
== END | disposition home or self-care (01) ==
LOC: D.CT 07:46
DX: R91.8 Other nonspecific abnormal finding of lung field (principal)

== ENCOUNTER 2017-07-18 22:11 | Emergency (ER) | payer OTHER ==
[2017-05-31 13:03] VITALS: BMI 31.0
== END 2017-07-18 23:52 | disposition home or self-care (01) ==
LOC: D.ER 22:11
DX: S61.412A Laceration without foreign body of left hand, initial encounter (principal); V49.9XXA Car occupant (driver) (passenger) injured in unspecified traffic accident, initial encounter; Y93.89 Activity, other specified; Y92.89 Other specified places as the place of occurrence of the external cause; I10 Essential (primary) hypertension

== ENCOUNTER → 2017-09-08 16:55 | Outpatient (CLI) | payer OTHER ==
[2017-05-31 13:03] VITALS: BMI 31.0
[2017-09-10 07:21] LABS: IMMUNOGLOBULIN E 35 IU/mL (0-100)
[2017-09-11 17:07] LABS: IMMUNOGLOBULIN A 354 mg/dL (61-437); IMMUNOGLOBULIN G 907 mg/dL (700-1600); IMMUNOGLOBULIN M 76 mg/dL (20-172)
== END | disposition home or self-care (01) ==
LOC: D.LABREF 16:55
PROVIDERS: Internal Medicine Pulmonary Disease
DX: J18.9 Pneumonia, unspecified organism (principal)

== ENCOUNTER → 2017-09-27 07:48 | Outpatient (CLI) | payer OTHER ==
[2017-05-31 13:03] VITALS: BMI 31.0
== END | disposition home or self-care (01) ==
LOC: D.RAD 07:48
DX: M54.5 Low back pain (principal)

== ENCOUNTER → 2017-10-18 15:22 | Outpatient (CLI) | payer OTHER ==
[2017-05-31 13:03] VITALS: BMI 31.0
== END | disposition home or self-care (01) ==
LOC: D.RAD 15:22
DX: J90 Pleural effusion, not elsewhere classified (principal)

== ENCOUNTER 2017-10-29 13:21 | Emergency (ER) | payer OTHER ==
[2017-05-31 13:03] VITALS: BMI 31.0
[2017-10-29 14:28] LABS: BASOPHILS 0.2 % (0-2); EOSINOPHILS 0.7 % (0-7); HEMATOCRIT 49.3 % (42.0-54.0); HEMOGLOBIN 16.4 g/dL (13.5-17.5); IMMATURE GRANULOCYTES 0.2 % (0-5); LYMPHOCYTES 8.2 % (15-50); MCH 28.9 pg (26.0-34.0); MCHC 33.3 g/dL (31.0-37.0); MCV 86.9 fL (80.0-100.0); MEAN PLATELET VOLUME 10.6 fL (7.4-10.4); MONOCYTES 7.5 % (2-11); NEUTROPHILS 83.2 % (40-80); PLATELET COUNT 240 10x3/uL (130-400); RBC 5.67 10x6/uL (4.20-6.10); RDW 18.6 % (11.5-14.5); WBC 10.1 10x3/uL (4.8-10.8)
[2017-10-29 14:45] LABS: ALBUMIN 3.9 g/dL (3.4-5.0); ANION GAP 10.1 mmol/L (8-16); BILIRUBIN - TOTAL 0.72 mg/dL (0.2-1.3); CALCIUM 9.3 mg/dL (8.5-10.1); CARBON DIOXIDE 29.7 mmol/L (21.0-32.0); CREATININE - SERUM 1.4 mg/dL (0.6-1.3)
[2017-10-29 14:48] LABS: POTASSIUM - SERUM 4.8 mmol/L (3.5-5.1)
[2017-10-29 14:54] LABS: AMYLASE - SERUM 72 U/L (25-115); LIPASE 186 U/L (73-393)
[2017-10-29 16:55] LABS: GLUCOSE - CSF 55 MG/DL (40-75); PROTEIN - CSF 56 MG/DL (12-60)
[2017-10-29 17:03] LABS: APPEARANCE - CSF CLEAR
[2017-10-29 17:05] LABS: RBC - CSF 1 cmm (0-0)
[2017-10-29 17:32] LABS: CHOL - HDL RATIO 2.1 ratio (2.3-4.9); CHOLESTEROL, TOTAL 172 mg/dL (0-200); CKMB 1.3 U/L (0.0-3.6); CREATINE KINASE 61 UL (21-232); HDL CHOLESTEROL 82 mg/dL (32-96); LDL CHOLESTEROL 73 mg/dL (0-100); LDL-HDL RATIO 0.9 ratio (1.5-3.5); TRIGLYCERIDE 87 mg/dL (30-200)
[2017-10-29 17:42] LABS: TROPONIN-I < 0.017 ng/mL (0.000-0.060)
== END 2017-10-29 17:42 | disposition home or self-care (01) ==
LOC: D.ER 13:21
PROVIDERS: Emergency Medicine
DX: G43.909 Migraine, unspecified, not intractable, without status migrainosus (principal); R11.10 Vomiting, unspecified; I10 Essential (primary) hypertension; E03.9 Hypothyroidism, unspecified; N40.0 Benign prostatic hyperplasia without lower urinary tract symptoms; I50.9 Heart failure, unspecified

== ENCOUNTER → 2017-10-31 08:08 | Outpatient (CLI) | payer OTHER ==
[2017-05-31 13:03] VITALS: BMI 31.0
== END | disposition home or self-care (01) ==
LOC: D.MRI 08:08
DX: M54.16 Radiculopathy, lumbar region (principal)

== ENCOUNTER 2018-03-31 08:59 | Emergency (ER) | payer OTHER ==
[2017-05-31 13:03] VITALS: BMI 31.0
== END 2018-03-31 11:23 | disposition home or self-care (01) ==
LOC: D.ER 08:59
DX: G43.909 Migraine, unspecified, not intractable, without status migrainosus (principal); I48.2 Chronic atrial fibrillation

== ENCOUNTER 2018-05-23 13:32 | Observation (INO) | payer MEDICARE, OTHER ==
[~2018-05-23] VITALS: Ht 185.4 cm; Wt 86.2 kg
[2018-05-23] MEDS ORDERED: ARICEPT5 MG PO (13:39)
[2018-05-23] MEDS ORDERED: TOPAMAX200 MG PO (13:40)
[2018-05-23] MEDS ORDERED: NEURONTIN 300300 MG PO (13:40)
[2018-05-23] MEDS ORDERED: LISINOPRIL10 MG PO (13:41)
[2018-05-23] MEDS ORDERED: ZOCOR40 MG PO (13:41)
[2018-05-23] MEDS ORDERED: CATAPRES0.1 MG PO (13:41)
[2018-05-23] MEDS ORDERED: VITAMIN D5000 UNIT PO (13:42)
[2018-05-23] MEDS ORDERED: AVODART0.5 MG PO (13:42)
[2018-05-23] MEDS ORDERED: PROZAC20 MG PO (13:43)
[2018-05-23] MEDS ORDERED: OMEPRAZOLE40 MG PO (13:43)
[2018-05-23 16:17] LABS: BASOPHILS 0.1 % (0-2); EOSINOPHILS 0.2 % (0-7); HEMATOCRIT 43.9 % (42.0-54.0); HEMOGLOBIN 15.4 g/dL (13.5-17.5); IMMATURE GRANULOCYTES 0.5 % (0-5); LYMPHOCYTES 8.4 % (15-50); MCH 31.2 pg (26.0-34.0); MCHC 35.1 g/dL (31.0-37.0); MCV 88.9 fL (80.0-100.0); NEUTROPHILS 83.8 % (40-80); RBC 4.94 10x6/uL (4.20-6.10); RDW 13.1 % (11.5-14.5); WBC 9.9 10x3/uL (4.8-10.8)
[2018-05-23 16:29] LABS: ALKALINE PHOSPHATASE 82 U/L (46-116); ALT (SGPT) 82 U/L (10-68); BILIRUBIN - TOTAL 0.61 mg/dL (0.2-1.3); CALC OSMOLALITY 269 mosm/kg (275-300); CARBON DIOXIDE 23.6 mmol/L (21.0-32.0); CHLORIDE - SERUM 98 mmol/L (98-107); CREATININE - SERUM 1.1 mg/dL (0.6-1.3); GLUCOSE 77 mg/dL (74-106); POTASSIUM - SERUM 4.8 mmol/L (3.5-5.1); PROTEIN - SERUM 6.7 g/dL (6.4-8.2); SODIUM 131 mmol/L (136-145); UREA NITROGEN 36 mg/dL (7-18); eGFR NON AFRICAN AMERICAN 71 mL/min (90-120)
[2018-05-23 16:36] LABS: ALBUMIN 3.1 g/dL (3.4-5.0); C-REACTIVE PROTEIN < 0.2 mg/dL (0.0-0.9)
[2018-05-23 17:11] LABS: PLATELET COUNT 185 10x3/uL (130-400)
[2018-05-23 17:12] LABS: ERYTHROCYTE SEDIMENTATION RATE 8 mm/hr (0-20)
[2018-05-23 17:28] LABS: APPEARANCE CLEAR (CLEAR); BILIRUBIN NEGATIVE (NEGATIVE); COLOR YELLOW (YELLOW); GLUCOSE NEGATIVE (NEGATIVE); KETONE SMALL mg/dL (NEGATIVE); NITRITE NEGATIVE (NEGATIVE); PROTEIN NEGATIVE (NEGATIVE); UROBILINOGEN NORMAL (NORMAL)
[2018-05-23 20:00] VITALS: BP 150/98
[2018-05-23 20:16] VITALS: BP 150/95
[2018-05-24] VITALS: BP 141/90
[2018-05-24 04:00] VITALS: BP 135/100; BP 150/95; BMI 25.1
[2018-05-24 06:33] LABS: BASOPHILS 0.1 % (0-2); EOSINOPHILS 0.9 % (0-7); HEMATOCRIT 43.2 % (42.0-54.0); HEMOGLOBIN 14.7 g/dL (13.5-17.5); IMMATURE GRANULOCYTES 0.7 % (0-5); LYMPHOCYTES 14.2 % (15-50); MCH 30.9 pg (26.0-34.0); MCV 90.8 fL (80.0-100.0); MEAN PLATELET VOLUME 10.7 fL (7.4-10.4); MONOCYTES 11.8 % (2-11); NEUTROPHILS 72.3 % (40-80); PLATELET COUNT 179 10x3/uL (130-400); RBC 4.76 10x6/uL (4.20-6.10); RDW 13.7 % (11.5-14.5)
[2018-05-24 07:18] LABS: ALBUMIN 2.9 g/dL (3.4-5.0); ANION GAP 10.3 mmol/L (8-16); BILIRUBIN - TOTAL 0.68 mg/dL (0.2-1.3); CALCIUM 8.5 mg/dL (8.5-10.1); CARBON DIOXIDE 27.6 mmol/L (21.0-32.0); CREATININE - SERUM 1.1 mg/dL (0.6-1.3); POTASSIUM - SERUM 4.9 mmol/L (3.5-5.1); PROTEIN - SERUM 6.4 g/dL (6.4-8.2)
[2018-05-24 09:54] VITALS: BP 114/59
[2018-05-24 11:00] VITALS: BP 148/101
[2018-05-24 12:44] VITALS: Ht 185.4 cm; Wt 86.2 kg
[2018-05-24 12:48] LABS: PROTEIN - BODY FLUID 5.4 G/DL
[2018-05-24 14:38] LABS: MACROPHAGES BF 11 %; NEUT - BF 74 %
[2018-05-24 20:00] VITALS: BP 137/86
[2018-05-25] VITALS: BP 119/79
[2018-05-25 04:00] VITALS: BP 117/80
[2018-05-25 05:34] LABS: BASOPHILS 0.3 % (0-2); EOSINOPHILS 1.9 % (0-7); HEMATOCRIT 41.9 % (42.0-54.0); HEMOGLOBIN 14.1 g/dL (13.5-17.5); IMMATURE GRANULOCYTES 0.6 % (0-5); LYMPHOCYTES 19.2 % (15-50); MCH 31.1 pg (26.0-34.0); MCHC 33.7 g/dL (31.0-37.0); MCV 92.3 fL (80.0-100.0); MEAN PLATELET VOLUME 10.6 fL (7.4-10.4); MONOCYTES 10.9 % (2-11); NEUTROPHILS 67.1 % (40-80); PLATELET COUNT 164 10x3/uL (130-400); RBC 4.54 10x6/uL (4.20-6.10); WBC 6.4 10x3/uL (4.8-10.8)
[2018-05-25 05:56] LABS: ALBUMIN 2.8 g/dL (3.4-5.0); BILIRUBIN - TOTAL 0.3 mg/dL (0.2-1.3); CALCIUM 8.3 mg/dL (8.5-10.1); CARBON DIOXIDE 28.8 mmol/L (21.0-32.0); CREATININE - SERUM 1.3 mg/dL (0.6-1.3); PROTEIN - SERUM 5.7 g/dL (6.4-8.2)
[2018-05-25 06:00] LABS: ANION GAP 8.2 mmol/L (8-16)
[2018-05-25 09:28] VITALS: BP 141/84
[2018-05-25 13:21] VITALS: BP 116/71
[2018-05-25] MEDS ORDERED: VOLTAREN100 GM TOPICAL (16:06)
[2018-05-25] MEDS ORDERED: STERAPRED DS 1010 MG PO (16:07)
[2018-05-25 16:10] VITALS: BP 124/67
== END 2018-05-25 17:20 | disposition home or self-care (01) ==
LOC: OBSVTIME → D.ER 13:32 → D.EDHOLD 15:32 → D.ER 15:32 → D.EDHOLD 15:32 → OBSVTIME 15:32 → D.M2 19:55 → D.EDHOLD 19:55 → D.M2 05-25 14:21
PROVIDERS: Family Medicine; Orthopaedic Surgery; Radiology Vascular & Interventional Radiology
PROC: 0S9D3ZZ Drainage of Left Knee Joint, Percutaneous Approach (ICD-10-PCS; principal; 2018-05-24 09:00)
DX: M25.462 Effusion, left knee (principal); W19.XXXA Unspecified fall, initial encounter; I10 Essential (primary) hypertension; M19.90 Unspecified osteoarthritis, unspecified site; E03.9 Hypothyroidism, unspecified; I48.2 Chronic atrial fibrillation; F32.9 Major depressive disorder, single episode, unspecified; Z86.73 Personal history of transient ischemic attack (TIA), and cerebral infarction without residual deficits; R56.9 Unspecified convulsions

== ENCOUNTER 2018-08-05 17:29 | Emergency (ER) | payer MEDICARE, OTHER ==
[~2018-08-05] VITALS: Ht 185.4 cm; Wt 82.7 kg
[~2018-08-05 17:29] MED LIST changes: +ARICEPT5 MG PO; +CATAPRES0.1 MG PO; +LISINOPRIL10 MG PO; +NEURONTIN 300300 MG PO; +OMEPRAZOLE40 MG PO; +PROZAC20 MG PO; +STERAPRED DS 1010 MG PO; +TOPAMAX200 MG PO; +VITAMIN D5000 UNIT PO; +VOLTAREN100 GM TOPICAL
[2018-08-05 17:33] VITALS: Ht 185.4 cm; Wt 82.7 kg
[2018-08-05 17:59] LABS: BASOPHILS 0.6 % (0-2); EOSINOPHILS 2.4 % (0-7); HEMATOCRIT 44.2 % (42.0-54.0); HEMOGLOBIN 15.2 g/dL (13.5-17.5); IMMATURE GRANULOCYTES 0.3 % (0-5); LYMPHOCYTES 17.3 % (15-50); MCH 32.8 pg (26.0-34.0); MCHC 34.4 g/dL (31.0-37.0); MCV 95.3 fL (80.0-100.0); MEAN PLATELET VOLUME 9.8 fL (7.4-10.4); MONOCYTES 11.1 % (2-11); NEUTROPHILS 68.3 % (40-80); PLATELET COUNT 191 10x3/uL (130-400); RBC 4.64 10x6/uL (4.20-6.10); RDW 14.4 % (11.5-14.5)
[2018-08-05 18:16] LABS: ALBUMIN 3.4 g/dL (3.4-5.0); ANION GAP 12.7 mmol/L (8-16); BILIRUBIN - TOTAL 0.4 mg/dL (0.2-1.3); CALCIUM 8.9 mg/dL (8.5-10.1); CARBON DIOXIDE 26.4 mmol/L (21.0-32.0); CREATININE - SERUM 1.2 mg/dL (0.6-1.3); POTASSIUM - SERUM 4.1 mmol/L (3.5-5.1); PROTEIN - SERUM 7.3 g/dL (6.4-8.2)
[2018-08-05 18:22] LABS: APTT 29.8 SECONDS (22.8-39.4); INR 0.97 (0.85-1.17); PROTIME 12.5 SECONDS (11.6-15.0)
[2018-08-05] MEDS ORDERED: VOLTAREN75 MG PO (22:04)
[2018-08-05] MEDS ORDERED: VIBRAMYCIN 100100 MG PO (22:04)
[2018-08-05 23:18] VITALS: BP 148/101
== END 2018-08-05 23:18 ==
LOC: D.ER 17:29
PROVIDERS: Family Medicine
DX: S00.03XA Contusion of scalp, initial encounter (principal); W01.10XA Fall on same level from slipping, tripping and stumbling with subsequent striking against unspecified object, initial encounter; Y93.89 Activity, other specified; Y92.019 Unspecified place in single-family (private) house as the place of occurrence of the external cause; S01.01XA Laceration without foreign body of scalp, initial encounter; Z86.73 Personal history of transient ischemic attack (TIA), and cerebral infarction without residual deficits; G40.909 Epilepsy, unspecified, not intractable, without status epilepticus; E07.9 Disorder of thyroid, unspecified; I10 Essential (primary) hypertension